=== PATIENT | male | born 1950 | race Caucasian/White ===

== ENCOUNTER 2017-01-19 17:33 | Emergency (ER) | payer OTHER ==
[~2017-01-19] VITALS: Ht 172.7 cm; Wt 78.0 kg
[2017-01-19 17:44] VITALS: BP 140/88; PULSE 103; RESP 16; TEMP 98; O2SAT 99
[2017-01-19] MEDS ORDERED: LOSA100T PO (17:59)
[2017-01-19 18:26] LABS: BLOOD, URINE NEG (NEG); GLUCOSE,URINE NEG (NEG); KETONE, URINE NEG (NEG); NITRITE,URINE NEG (NEG)
[2017-01-19 18:30] LABS: METHOD OF COLLECTION CATH
[2017-01-19 18:31] LABS: URINE COLOR YELLOW (YELLW/STRAW)
[2017-01-19 18:32] LABS: COMMENT (UR) CATH-CULT NOT IND; CULTURE IF INDICATED CATH CULTURE NOT IND; TRANSITIONAL EPI CELLS, URINE 0-5 /hpf
--- NOTE | 2017-01-19 18:32 | PD ---
HPI Chief Complaint: Complaint Time Seen by Provider: 18:02 Travel History International Travel<30 days: No Contact w/Intl Traveler<30days: No Traveled to known affect area: No History of Present Illness HPI 66-year-old male here for evaluation of lower abdominal cramping and inability to urinate. Patient reports history of elevated PSA and is scheduled for a prostate biopsy in 2 days. He has never had this issue before. He states when he tries to urinate he can only pass a small amount of urine. No hematuria. Patient also noted some diarrhea prior to arrival. No vomiting. PFSH Past Medical History Diminished Hearing: No Hypertension: Yes Influenza Vaccination: Yes Past Surgical History Other Surgery: Yes (finger) Social History Alcohol Use: Yes (wine) Tobacco Use: No Allergies-Medications (Allergen,Severity, Reaction): Coded Allergies: No Known Allergies (Unverified , 01/19/17) Reported Meds & Prescriptions Reported Meds & Active Scripts Active Reported Losartan (Losartan Potassium) 100 Mg Tab 100 Mg PO DAILY Review of Systems Except as stated in HPI: all other systems reviewed are Neg Physical Exam Narrative GENERAL: Well-developed, well-nourished, pacing around room because of abdominal pain/cramping. SKIN: Warm and dry. HEAD: Atraumatic. Normocephalic. EYES: Pupils equal and round. No scleral icterus. No injection or drainage. ENT: Mucous membranes pink and moist. CARDIOVASCULAR: Regular rate and rhythm. RESPIRATORY: No accessory muscle use. Clear to auscultation. Breath sounds equal bilaterally. GASTROINTESTINAL: Abdomen soft, nondistended. Moderate suprapubic tenderness with palpable distended bladder. Rest of abdomen is soft and nontender. NEUROLOGICAL: Awake and alert. No obvious cranial nerve deficits. Motor grossly within normal limits. Normal speech. PSYCHIATRIC: Appropriate mood and affect; insight and judgment normal. Data Data Last Documented VS Vital Signs Date Time Temp Pulse Resp B/P Pulse Ox O2 Delivery O2 Flow Rate FiO2 01/19/17 17:44 98.0 103 16 140/88 99 Orders Urinary Catheter Insert/Apply (01/19/17 18:08) Urinalysis - C+S If Indicated (01/19/17 18:08) Labs Laboratory Tests Test 01/19/17 18:20 Urine Collection Type CATH Urine Color YELLOW Urine Turbidity CLEAR Urine pH 6.0 Urine Specific [place] 1.009 Urine Protein NEG mg/dL Urine Glucose (UA) NEG mg/dL Urine Ketones NEG mg/dL Urine Occult Blood NEG Urine Nitrite NEG Urine Bilirubin NEG Urine Leukocyte Esterase NEG Urine Transitional Epithelial 0-5 /hpf Cells Urine Amorphous Sediment FEW Microscopic Urinalysis Comment CATH-CULT NOT IND Urine Collection Time 1820 [facility] Medical Decision Making Medical Screen Exam Complete: Yes Emergency Medical Condition: Yes Differential Diagnosis Urinary retention, prostatitis, UTI, diverticulitis Narrative Course Kenney catheter was placed with over 600 cc of clear urine output. The patient experienced immediate relief of symptoms. UA is within normal limits. The patient is resting comfortably and is feeling much better after Kenney was placed. His abdominal exam is benign. He has an appointment with his urologist in 2 days on Saturday. He will be discharged home with a leg bag and a prescription for Flomax. He was informed on when to return to the emergency department. He verbalizes understanding and agreement with plan. Diagnosis Primary Impression: Urinary retention Referrals: Urologist 2 days Additional Instructions: Follow-up with your urologist as scheduled on Saturday. Return to the emergency department for worsening symptoms or any other concerns. Scripts Tamsulosin (Flomax)0.4 Mg Cap0.4 Mg PO HS #14 CAP Ref 0 Prov:Siddhartha Carrillo MD 01/19/17 Disposition: 01 DISCHARGE HOME Condition: Stable Siddhartha Carrillo MD Jan 19, 2017 18:32
[2017-01-19] MEDS ORDERED: TAMS5CAP PO (18:35)
[2017-01-19] MEDS ORDERED: TAMSULOSIN HCL 0.4 MG CAP PO ONE (18:45)
[2017-01-19 19:06] VITALS: PULSE 82; O2SAT 96
== END 2017-01-19 19:19 | disposition home or self-care (01) ==
LOC: PHED 17:33
DX: R33.9 Retention of urine, unspecified (principal)
CPT/HCPCS: 51702; 81001

== ENCOUNTER 2017-01-23 05:53 | Inpatient (IN) | payer OTHER, MEDICARE ==
[2017-01-23] VITALS (15 sets, daily range): BP systolic 95–140; BP diastolic 53–78; PULSE 87–107; RESP 16–20; TEMP 99.1–103.2; O2SAT 94–98
[~2017-01-23] VITALS: Ht 170.2 cm; Wt 79.9 kg
[~2017-01-23 05:53] MED LIST: LOSA100T PO; TAMS5CAP PO
--- NOTE | 2017-01-23 06:18 | PD ---
HPI Chief Complaint: fever Time Seen by Provider: 06:06 Travel History International Travel<30 days: No Contact w/Intl Traveler<30days: No Traveled to known affect area: No History of Present Illness HPI The patient is a 66-year-old male that had a Kenney catheter put in because of inability to urinate here in the emergency department on Saturday p.m. He had a prostate biopsy Saturday, 2 days ago. Yesterday he developed a fever. The fever is about 103. He has not had any diarrhea or cough or shortness of breath but he has been vomiting at least 3 times. He denies vomiting any blood. Dr. Laurent is his urologist. [facility] Past Medical History Diminished Hearing: No Hypertension: Yes Past Surgical History Other Surgery: Yes (finger) Social History Alcohol Use: Yes (wine) Tobacco Use: No Allergies-Medications (Allergen,Severity, Reaction): Coded Allergies: No Known Allergies (Unverified , 01/23/17) Reported Meds & Prescriptions Reported Meds & Active Scripts Active Flomax (Tamsulosin HCl) 0.4 Mg Cap 0.4 Mg PO HS Reported Levofloxacin 500 Mg Tab 500 Mg PO DAILY Lortab (Hydrocodone-Acetaminophen) 10-325 Mg Tab 1 Tab PO Q4H PRN Losartan (Losartan Potassium) 100 Mg Tab 100 Mg PO DAILY Review of Systems Except as stated in HPI: all other systems reviewed are Neg Physical Exam Narrative GENERAL: The patient appears slightly dehydrated, alert, oriented 3 in no apparent distress. His vital signs show heart rate of 107 with a temperature by 103 but otherwise normal. SKIN: Warm and dry. No skin rash is present. HEAD: Atraumatic. Normocephalic. EYES: Pupils equal and round. No scleral icterus. No injection or drainage. ENT: No nasal bleeding or discharge. Mucous membranes pink and moist. NECK: Trachea midline. No JVD. CARDIOVASCULAR: Regular rate and rhythm. No murmur appreciated. RESPIRATORY: No accessory muscle use. Clear to auscultation. Breath sounds equal bilaterally. GASTROINTESTINAL: Abdomen soft, non-tender, nondistended. Hepatic and splenic margins not palpable. No guarding or rebound is present. MUSCULOSKELETAL: No obvious deformities. No clubbing. No cyanosis. No edema. NEUROLOGICAL: Awake and alert. No obvious cranial nerve deficits. Motor grossly within normal limits. Normal speech. PSYCHIATRIC: Appropriate mood and affect; insight and judgment normal. RECTAL EXAM: No masses or tenderness, stool is brown. The prostate is nontender and there are no perirectal abscess is noted. Data Data Last Documented VS Vital Signs Date Time Temp Pulse Resp B/P Pulse Ox O2 Delivery O2 Flow Rate FiO2 01/23/17 06:56 103.2 106 16 125/63 96 Room Air Orders Complete Blood Count With Diff (01/23/17 06:09) Comprehensive Metabolic Panel (01/23/17 06:09) Lactic Acid Sepsis Protocol (01/23/17 06:09) Urinalysis - C+S If Indicated (01/23/17 06:09) Influenzae A/B Antigen (01/23/17 06:09) Blood Culture (01/23/17 06:09) Chest, Pa & Lat (01/23/17 06:09) Ecg Monitoring (01/23/17 06:09) Iv Access Insert/Monitor (01/23/17 06:09) Oximetry (01/23/17 06:09) Oxygen Administration (01/23/17 06:09) Ondansetron Inj (Zofran Inj) (01/23/17 06:30) Sodium Chlor 0.9% 1000 Ml Inj (Ns 1000 M (01/23/17 06:30) Acetaminophen (Tylenol) (01/23/17 07:00) Labs Laboratory Tests Test 01/23/17 06:22 White Blood Count 7.1 TH/MM3 Red Blood Count 4.59 MIL/MM3 Hemoglobin 13.8 GM/DL Hematocrit 40.2 % Mean Corpuscular Volume 87.6 FL Mean Corpuscular Hemoglobin 30.0 PG Mean Corpuscular Hemoglobin 34.3 % Concent Red Cell Distribution Width 11.7 % Platelet Count 117 TH/MM3 Mean Platelet Volume 9.6 FL Neutrophils (%) (Auto) 89.7 % Lymphocytes (%) (Auto) 4.5 % Monocytes (%) (Auto) 4.9 % Eosinophils (%) (Auto) 0.3 % Basophils (%) (Auto) 0.6 % Neutrophils # (Auto) 6.5 TH/MM3 Lymphocytes # (Auto) 0.3 TH/MM3 Monocytes # (Auto) 0.3 TH/MM3 Eosinophils # (Auto) 0.0 TH/MM3 Basophils # (Auto) 0.0 TH/MM3 CBC Comment AUTO DIFF MDM Medical Decision Making Medical Screen Exam Complete: Yes Emergency Medical Condition: Yes Medical Record Reviewed: Yes Differential Diagnosis Prostatitis, pyelonephritis, cystitis, infected stone, sepsis, pneumonia Narrative Course It is now [address] Gibbs is taking over the patient. Carson San MD Jan 23, 2017 06:17
[2017-01-23] MEDS ORDERED: ONDANSETRON HCL 4 MG/2 ML VIAL IV ONE (06:30)
[2017-01-23] MEDS: SODIUM CHLOR 0.9% 1000 ML INJ 1,000 ML IV SCH ×4 (06:38→21:46)
[2017-01-23 06:44] LABS: AUTOMATED NEUTROPHIL # 6.5 TH/MM3 (1.8-7.7); BASOPHIL % 0.6 % (0.0-2.0); EOSINOPHIL % 0.3 % (0.0-4.0); HEMATOCRIT 40.2 % (39.0-51.0); HEMO FLAGS AUTO DIFF; LYMPH % 4.5 % (9.0-44.0); LYMPHOCYTE # 0.3 TH/MM3 (1.0-4.8); MEAN CELL VOLUME 87.6 FL (80.0-100.0); MEAN CORPUSCULAR HGB CONC 34.3 % (32.0-36.0); MONO % 4.9 % (0.0-8.0); NEUT % 89.7 % (16.0-70.0); PLATELET COUNT 117 TH/MM3 (150-450); RED BLOOD COUNT 4.59 MIL/MM3 (4.50-5.90); RED CELL DISTRIBUTION WIDTH 11.7 % (11.6-17.2); WHITE BLOOD COUNT 7.1 TH/MM3 (4.0-11.0)
[2017-01-23] MEDS ORDERED: LEVO500T3 PO (06:55)
[2017-01-23] MEDS ORDERED: HYDR-3535 PO (06:55)
[2017-01-23 07:00] LABS: BLOOD, URINE LARGE (NEG); GLUCOSE,URINE NEG (NEG); KETONE, URINE NEG (NEG); NITRITE,URINE NEG (NEG)
[2017-01-23] MEDS ORDERED: ACETAMINOPHEN 325 MG TAB PO ONE (07:00)
[2017-01-23 07:01] LABS: CHLORIDE 100 MEQ/L (98-107); POTASSIUM 3.7 MEQ/L (3.5-5.1); SODIUM (NA) 136 MEQ/L (136-145)
[2017-01-23 07:04] LABS: METHOD OF COLLECTION CATH; URINE COLOR YELLOW (YELLW/STRAW)
[2017-01-23 07:04] LABS: ANION GAP 10 MEQ/L (5-15); BICARBONATE 25.8 MEQ/L (21.0-32.0)
[2017-01-23 07:05] LABS: BLOOD UREA NITROGEN 14 MG/DL (7-18)
[2017-01-23 07:06] LABS: CULTURE IF INDICATED CATH CULTURE NOT IND
[2017-01-23 07:07] LABS: COMMENT (UR) CATH-CULT NOT IND
[2017-01-23 07:07] LABS: ALT (GPT) 87 U/L (12-78); AST (GOT) 74 U/L (15-37)
[2017-01-23 07:08] LABS: GLOMERULAR FILTRATION RATE 67 ML/MIN (>89)
[2017-01-23 07:10] LABS: ALKALINE PHOSPHATASE 68 U/L (45-117)
--- NOTE | 2017-01-23 07:11 | RADHPO ---
EXAM DATE/TIME: 01/23/2017 06:31 [facility] COMPARISON: No previous studies available for comparison. INDICATIONS : Fever. MEDICAL HISTORY : None. SURGICAL HISTORY : None. ENCOUNTER: Initial ACUITY: 1 day PAIN SCORE: 0/10 LOCATION: Bilateral chest FINDINGS: PA and lateral views of the chest demonstrate the lungs to be symmetrically aerated without evidence of mass, infiltrate or effusion. Minimal fibrotic scarring and/or discoid atelectasis is noted withi n the left lung base. The cardiomediastinal contours are unremarkable. Osseous structures are intact . CONCLUSION: No acute focal pulmonary infiltrate. Minimal fibrotic scarring and/or discoid atelect asis within the left lung base. Rehan Greenfield MD on January 23, 2017 at 7:07 Board Certified Radiologist. This report was verified electronically.
[2017-01-23 07:15] LABS: SCAN/DIFF AUTO DIFF CONFIRMED
[2017-01-23] MEDS ORDERED: SODIUM CHLOR 0.9% 1000 ML INJ 1,000 ML IV ONE (08:15)
--- NOTE | 2017-01-23 08:21 | PD ---
Physical Exam Narrative Received sign out from previous team to follow up labs. 66yo M presents to the ED with c/o fever, chills, NBNB vomit since last night. States he had a prostate biopsy 2 days ago. Had a morse placed 3 days ago for urinary retention and was able to follow up with urologist the next day. Pt had morse removed and was able to urinate normally. Denies any chest pain, sob , abdominal pain, cough. Pt is febrile at 103.2F here and given acetaminophen. HR 106. Labs reviewed, no leukocytosis. Lactic acid 1.5. CXR negative. UA showed large blood. No leukocyte. Attempted to page pt's urologist 3 times but unable to reach him. Pt's vital signs concerning for bacteremia from prostate biopsy. Pt was empirically given vancomycin and zosyn. Discussed with [facility] hospitalist and admitted for sepsis of unknown source. Data Data Last Documented VS Vital Signs Date Time Temp Pulse Resp B/P Pulse Ox O2 Delivery O2 Flow Rate FiO2 01/23/17 10:26 Room Air 01/23/17 09:35 94 17 104/56 96 01/23/17 08:53 99.9 Orders Complete Blood Count With Diff (01/23/17 06:09) Comprehensive Metabolic Panel (01/23/17 06:09) Lactic Acid Sepsis Protocol (01/23/17 06:09) Urinalysis - C+S If Indicated (01/23/17 06:09) Influenzae A/B Antigen (01/23/17 06:09) Blood Culture (01/23/17 06:09) Chest, Pa & Lat (01/23/17 06:09) Ecg Monitoring (01/23/17 06:09) Iv Access Insert/Monitor (01/23/17 06:09) Oximetry (01/23/17 06:09) Oxygen Administration (01/23/17 06:09) Ondansetron Inj (Zofran Inj) (01/23/17 06:30) Sodium Chlor 0.9% 1000 Ml Inj (Ns 1000 M (01/23/17 06:30) Acetaminophen (Tylenol) (01/23/17 07:00) Sodium Chlor 0.9% 1000 Ml Inj (Ns 1000 M (01/23/17 08:15) Vancomycin Inj (Vancomycin Inj) (01/23/17 09:00) Piperacil-Tazo 3.375 Gm Premix (Zosyn 3. (01/23/17 09:00) Admit Order (Ed Use Only) (01/23/17 10:32) Acetamin-Hydrocod 325-5 Mg ([place] 5-325 (01/23/17 10:45) Labs Laboratory Tests Test 01/23/17 01/23/17 06:22 06:34 White Blood Count 7.1 TH/MM3 Red Blood Count 4.59 MIL/MM3 Hemoglobin 13.8 GM/DL Hematocrit 40.2 % Mean Corpuscular Volume 87.6 FL Mean Corpuscular Hemoglobin 30.0 PG Mean Corpuscular Hemoglobin 34.3 % Concent Red Cell Distribution Width 11.7 % Platelet Count 117 TH/MM3 Mean Platelet Volume 9.6 FL Neutrophils (%) (Auto) 89.7 % Lymphocytes (%) (Auto) 4.5 % Monocytes (%) (Auto) 4.9 % Eosinophils (%) (Auto) 0.3 % Basophils (%) (Auto) 0.6 % Neutrophils # (Auto) 6.5 TH/MM3 Lymphocytes # (Auto) 0.3 TH/MM3 Monocytes # (Auto) 0.3 TH/MM3 Eosinophils # (Auto) 0.0 TH/MM3 Basophils # (Auto) 0.0 TH/MM3 CBC Comment AUTO DIFF Differential Comment AUTO DIFF CONFIRMED Sodium Level 136 MEQ/L Potassium Level 3.7 MEQ/L Chloride Level 100 MEQ/L Carbon Dioxide Level 25.8 MEQ/L Anion Gap 10 MEQ/L Blood Urea Nitrogen 14 MG/DL Creatinine 1.10 MG/DL Estimat Glomerular Filtration 67 ML/MIN Rate Random Glucose 124 MG/DL Lactic Acid Level 1.5 mmol/L Calcium Level 8.4 MG/DL Total Bilirubin 1.0 MG/DL Aspartate Amino Transf 74 U/L (AST/SGOT) Alanine Aminotransferase 87 U/L (ALT/SGPT) Alkaline Phosphatase 68 U/L Total Protein 7.0 GM/DL Albumin 3.2 GM/DL Urine Collection Type CATH Urine Color YELLOW Urine Turbidity CLEAR Urine pH 7.0 Urine Specific [place] 1.018 Urine Protein TRACE mg/dL Urine Glucose (UA) NEG mg/dL Urine Ketones NEG mg/dL Urine Occult Blood LARGE Urine Nitrite NEG Urine Bilirubin NEG Urine Leukocyte Esterase NEG Urine RBC 25-49 /hpf Urine WBC 3-5 /hpf Urine Amorphous Sediment FEW Microscopic Urinalysis Comment CATH-CULT NOT IND Urine Collection Time 0634 MDM Supervised Visit with CASSIUS: No Diagnosis Primary Impression: Sepsis Qualified Code: A41.9 - Sepsis, due to unspecified organism Admitting Information Admitting Physician Requests: Pati Beckham DO Jan 23, 2017 08:21
[2017-01-23] MEDS ORDERED: VANCOMYCIN INJ 1,000 MG in SODIUM CHLOR 0.9% 250 ML INJ 250 ML IV ONE (09:00)
[2017-01-23] MEDS ORDERED: PIPERACIL-TAZO 3.375 GM PREMIX 50 ML IV ONE (09:00)
[2017-01-23] MEDS ORDERED: SODIUM CHLORIDE 0.9% FLUSH 5 ML FLUSH FLUSH PRN (10:45)
[2017-01-23] MEDS ORDERED: Vancomycin Consult Pharmacy 1 EA OTHER SCH (10:45)
[2017-01-23] MEDS ORDERED: ACETAMINOPHEN/HYDROcodone 325 MG/5 MG TAB PO ONE (10:45)
[2017-01-23] MEDS ORDERED: NALOXONE HCL 0.4 MG/ML AMP IV PRN (10:45)
[2017-01-23] MEDS ORDERED: ONDANSETRON HCL 4 MG/2 ML VIAL IVP PRN (10:45)
[2017-01-23] MEDS: HEPARIN SODIUM - SQ 10,000 UNITS/ML VIAL SQ SCH ×2 (10:54→21:51)
[2017-01-23] MEDS ORDERED: VANCOMYCIN INJ 1,000 MG in SODIUM CHLOR 0.9% 250 ML INJ 250 ML IV SCH (11:00)
[2017-01-23] MEDS: PIPERACIL-TAZO 3.375 GM PREMIX 50 ML IV SCH ×2 (15:41→21:45)
[2017-01-23] MEDS: ACETAMINOPHEN 325 MG TAB PO PRN (16:13)
[2017-01-23] MEDS ORDERED: PROMETHAZINE INJ 25 MG/ML VIAL IM PRN (17:45)
[2017-01-23] MEDS ORDERED: ACETAMINOPHEN/HYDROcodone 325 MG/10 MG TAB PO PRN (21:00)
[2017-01-23] MEDS: SODIUM CHLORIDE 0.9% FLUSH 5 ML FLUSH FLUSH SCH (21:45)
[2017-01-23] MEDS: TAMSULOSIN HCL 0.4 MG CAP PO SCH (21:46)
[2017-01-23] MEDS: ZOLPIDEM TARTRATE 5 MG TAB PO SCH (21:52)
[2017-01-23] MEDS: LOSARTAN 50 MG TAB PO SCH (21:52)
--- NOTE | 2017-01-23 22:02 | MH ---
cc: BRIGHT BRITO MD DATE OF ADMISSION 01/23/2017 CHIEF COMPLAINT Fever. HISTORY OF PRESENT ILLNESS This is a 66-year-old male with past medical and surgical history significant for hypertension. The patient came to the hospital, had a Kenney catheter put in because of inability to urinate here in the emergency department on Saturday p.m. he had a prostate biopsy Saturday and today he developed a fever. The fever was 103. He has not had any diarrhea, cough or shortness of breath, but he had been vomited at least three times yesterday. He denies any blood in the vomitus. His urologist is Dr. Laurent. The patient denies any other complaint. He said he does not feel any fever or any complaint at the time of examination. PAST MEDICAL AND SURGICAL HISTORY As dictated above. SOCIAL HISTORY He drinks wine on a daily basis. Denies any smoking. Denies any drug abuse. Lives at home. He is retired. FAMILY HISTORY Significant for nothing. ALLERGIES NO KNOWN DRUG ALLERGIES. MEDICATIONS Include: 1. Flomax 0.4 milligrams p.o. daily. 2. Levaquin 500 mg p.o. daily. 3. Lortab 10 / 325 p.o. q.4h p.r.n. pain. 4. Losartan 100 mg p.o. daily. REVIEW OF SYSTEMS All review of systems are negative. PHYSICAL EXAMINATION GENERAL: This is a 66-year-old male sitting on the bed not in acute distress. VITAL SIGNS: Temperature 101.2, heart rate 99, respirations 20, blood pressure 130/78, O2 saturation 96% room air. HEENT: Normocephalic, atraumatic. EOMI. PERRL. Oral mucosa moist. NECK: Supple. No visible thyromegaly or neck mass. Trachea central. CARDIOVASCULAR: Regular rate and rhythm. LUNGS: Respirations clear to auscultation bilaterally. ABDOMEN: Soft, nontender. Bowel sounds audible. EXTREMITIES: No edema. No cyanosis or clubbing. Full range of motion of all extremities. NEUROLOGICAL: Awake, alert, oriented x4. No focal deficits. SKIN: Warm and dry. PSYCHIATRIC: The patient is cooperative. Mood and affect are normal. LABORATORY DATA Include CBC totally unremarkable except for platelet count 117 low, neutrophils 89.7 high, lympho 4.5 low. BMP totally unremarkable except for GFR 67 low, glucose 124 high, lactic acid level 1.5, calcium 8.4, AST 74, ALT 78. Troponin I is 0.02 and 0.06. Albumin 3.2. Urine exam showed large occult blood and rbc's 25-49, 3-5 wbc's. Influenza A and B negative. Blood cultures x2 done negative so far. IMAGING Chest x-ray was done shows no acute focal pulmonary infiltrates, minimal fibrotic scarring or discoid atelectasis within the left lung base. ASSESSMENT/PLAN 1. This is a 66-year-old male who came to the ER diagnosed with fever. Etiology not known. The patient had a prostate biopsy. The patient is on vancomycin and Zosyn. I will consult infectious disease for further recommendation. 2. High PSA status post prostate biopsy. Had hematuria because of that. 3. History of hypertension. Continue home medication. We will monitor blood pressure. 4. High troponin. We will repeat troponin again. 5. Low platelet count. We will monitor. 6. DVT prophylaxis. SCDs. 7. GI prophylaxis. Protonix 40 milligrams p.o. daily. 8. We are going to manage the patient on a daily basis and make recommendations on a daily basis. Bright Brito MD EA/CECIL /8:55 PM /9:40 PM
[2017-01-23] MEDS: VANCOMYCIN INJ 1,400 MG in SODIUM CHLORID 0.9% 500 ML INJ 500 ML IV SCH (23:14)
[2017-01-24] VITALS (7 sets, daily range): BP systolic 98–133; BP diastolic 59–79; PULSE 73–104; RESP 20–22; TEMP 98.7–101.2; O2SAT 93–97
[2017-01-24] MEDS: ACETAMINOPHEN 325 MG TAB PO PRN ×2 (01:10→15:02)
[2017-01-24] MEDS: SODIUM CHLOR 0.9% 1000 ML INJ 1,000 ML IV SCH ×2 (03:57→17:35)
[2017-01-24] MEDS: PIPERACIL-TAZO 3.375 GM PREMIX 50 ML IV SCH ×4 (03:58→21:54)
[2017-01-24 06:10] LABS: AUTOMATED NEUTROPHIL # 3.9 TH/MM3 (1.8-7.7); BASOPHIL % 0.7 % (0.0-2.0); EOSINOPHIL % 0.1 % (0.0-4.0); HEMATOCRIT 38.6 % (39.0-51.0); LYMPH % 15.2 % (9.0-44.0); LYMPHOCYTE # 0.7 TH/MM3 (1.0-4.8); MEAN CELL VOLUME 88.7 FL (80.0-100.0); MEAN CORPUSCULAR HEMOGLOBIN 30.8 PG (27.0-34.0); MEAN CORPUSCULAR HGB CONC 34.7 % (32.0-36.0); MONO % 4.7 % (0.0-8.0); NEUT % 79.3 % (16.0-70.0); PLATELET COUNT 100 TH/MM3 (150-450); RED BLOOD COUNT 4.35 MIL/MM3 (4.50-5.90); RED CELL DISTRIBUTION WIDTH 11.9 % (11.6-17.2); WHITE BLOOD COUNT 4.8 TH/MM3 (4.0-11.0)
[2017-01-24 06:12] LABS: HEMO FLAGS AUTO DIFF
[2017-01-24 06:18] LABS: POTASSIUM 3.4 MEQ/L (3.5-5.1)
[2017-01-24 06:23] LABS: BICARBONATE 25.1 MEQ/L (21.0-32.0)
[2017-01-24 06:41] LABS: PLATELET ESTIMATE SMEAR LOW (NORMAL); PLATELET MORPHOLOGY NORMAL (NORMAL); SCAN/DIFF AUTO DIFF CONFIRMED
--- NOTE | 2017-01-24 08:12 | HHI.PR ---
Subjective History of Present Illness Patient feeling better have low potassium d/w RN and at bed side no acute issue Review of Systems Constitutional Constitutional: Fatigue, Weakness Vitals/Results Intake & Output 01/23/17 01/23/17 01/24/17 15:00 23:00 07:00 Intake Total 3000 ml 740 ml 1250 ml Output Total 900 ml 500 ml 100 ml Balance 2100 ml 240 ml 1150 ml Intake Oral 240 ml IV Total 3000 ml 500 ml 1250 ml Output Urine Total 900 ml 500 ml 100 ml # Voids 4 # Bowel Movements 0 Vital Signs Vital Signs Date Time Temp Pulse Resp B/P Pulse Ox O2 Delivery O2 Flow Rate FiO2 01/24/17 00:00 101.1 104 22 121/72 95 01/23/17 21:00 87 01/23/17 20:00 94 21 01/23/17 20:00 99.9 88 18 140/78 94 01/23/17 18:10 101.2 01/23/17 17:38 98 21 01/23/17 17:22 18 01/23/17 16:00 103.1 99 20 130/78 96 01/23/17 13:14 18 01/23/17 11:30 101.0 102 20 128/71 96 01/23/17 10:49 99.1 103 17 104/67 98 Room Air 01/23/17 10:26 Room Air 01/23/17 09:35 94 17 104/56 96 Room Air 01/23/17 08:53 99.9 104 17 95/53 96 Room Air CBC/BMP: 01/24/17 0553 01/24/17 0553 Lab Results Laboratory Tests Test 01/23/17 01/23/17 01/24/17 11:00 16:15 05:53 Troponin I 0.02 NG/ML 0.06 NG/ML White Blood Count 4.8 TH/MM3 Red Blood Count 4.35 MIL/MM3 Hemoglobin 13.4 GM/DL Hematocrit 38.6 % Mean Corpuscular Volume 88.7 FL Mean Corpuscular Hemoglobin 30.8 PG Mean Corpuscular Hemoglobin 34.7 % Concent Red Cell Distribution Width 11.9 % Platelet Count 100 TH/MM3 Mean Platelet Volume 9.6 FL Neutrophils (%) (Auto) 79.3 % Lymphocytes (%) (Auto) 15.2 % Monocytes (%) (Auto) 4.7 % Eosinophils (%) (Auto) 0.1 % Basophils (%) (Auto) 0.7 % Neutrophils # (Auto) 3.9 TH/MM3 Lymphocytes # (Auto) 0.7 TH/MM3 Monocytes # (Auto) 0.2 TH/MM3 Eosinophils # (Auto) 0.0 TH/MM3 Basophils # (Auto) 0.0 TH/MM3 CBC Comment AUTO DIFF Differential Comment AUTO DIFF CONFIRMED Platelet Estimate LOW Platelet Morphology Comment NORMAL Red Cell Morphology Comment NORMAL Sodium Level 141 MEQ/L Potassium Level 3.4 MEQ/L Chloride Level 106 MEQ/L Carbon Dioxide Level 25.1 MEQ/L Anion Gap 10 MEQ/L Blood Urea Nitrogen 11 MG/DL Creatinine 1.20 MG/DL Estimat Glomerular Filtration 60 ML/MIN Rate Random Glucose 98 MG/DL Calcium Level 7.7 MG/DL Physical Exam General General Appearance: Well Nourished, No Acute Distress, Comfortable Eyes Eye Exam: Pupils Equal, Pupils Reactive, Sclera White, Extraocular Movement Intact Throat Throat Exam: Oral Mucosa Manuel Garcia Ii & Moist Neck Neck Exam: Neck Supple, Trachea Midline Pulmonary Resp Exam: Clear Bilaterally, Breath Sounds Equal, No Distress Cardiology CV Exam: Regular, Normal Sinus Rhythm Gastrointestinal/Abdomen GI Exam: Soft, Non-Tender, Bowel Sounds Present Musculoskeletal MS Exam: Joints Intact, Normal Tone Integumentary Skin Exam: Clear, Warm, Dry, Intact, Normal Turgor Neurologic Neuro Exam: Alert, Awake, Oriented, Speech Clear, Moving All Extremities, No Focal Deficits VTE Prophylaxis VTE Prophylaxis Meds: Heparin PUD Prophylasis PUD Prophylaxis: Protonix Assessment/Plan Assessment/Plan ASSESSMENT/PLAN 1. This is a 66-year-old male who came to the ER diagnosed with fever. Etiology not known. The patient had a prostate biopsy. The patient is on vancomycin and Zosyn. consulted infectious disease for further recommendation. blood culture negative so far. 2. High PSA status post prostate biopsy. Had hematuria because of that. 3. History of hypertension. Continue home medication. We will monitor blood pressure. 4. High troponin. We will repeat troponin again. 5. Low platelet count. We will monitor. 6. DVT prophylaxis. SCDs. 7. GI prophylaxis. Protonix 40 milligrams p.o. daily. 8. We are going to manage the patient on a daily basis and make recommendations on a daily basis. Discussed Condition with: Patient Bright Bundy MD Jan 24, 2017 08:12
[2017-01-24] MEDS: SODIUM CHLORIDE 0.9% FLUSH 5 ML FLUSH FLUSH SCH ×2 (09:00→20:45)
--- NOTE | 2017-01-24 09:19 | RADHPO ---
EXAM DATE/TIME: 01/24/2017 08:55 [facility] COMPARISON: No previous studies available for comparison. INDICATIONS : Fever. RADIATION DOSE: 12.85 CTDIvol (mGy) MEDICAL HISTORY : Hypertension. SURGICAL HISTORY : None. ENCOUNTER: Initial ACUITY: 3 days PAIN SCALE: 0/10 LOCATION: chest TECHNIQUE: Volumetric scanning of the chest was performed. Using automated exposure control and adjustment of t he mA and/or kV according to patient size, radiation dose was kept as low as reasonably achievable to obtain optimal diagnostic quality images. FINDINGS: CT chest was performed without contrast. There is a small area of consolidation in the right lower l obe. Somewhat wedge-shaped worn more in a pattern of atelectasis than a pneumonia. Upper lungs are clear. There are a few tiny pulmonary nodules including a 2 mm pulmonary nodule in the right upper lobe laterally. No large infiltrate or mass identified. There are a number of hypodensities scattered throughout the liver. They are all a centimeter or subc entimeter in size but somewhat prominent including one nodule adjacent to the falciform ligament measuring 1.8 x 1 .4 cm. It actually distorts the contour of the liver anteriorly. There are a number of other tiny hypodense le sions. Either a hepatic MRI or contrast enhanced CT scan could be performed. There are trace bilateral pleural effus ions right greater than left. The visualized upper abdomen is unremarkable. CONCLUSION: Some atelectasis right lower lobe with tiny bilateral pleural effusions. No significant infiltrates or masses identified in the lungs. There is no mediastinal adenopathy. A number of hypodensities scattered throughout the liver including one adjacent to the falciform liga ment which anteriorly displaces the liver capsule. Slightly unusual for a benign lesion although hem angioma is within the differential. Either hepatic MRI or contrast enhanced CT scan is recommende d, certainly could be on an outpatient basis. Donta Nicole MD on January 24, 2017 at 9:10 Board Certified Radiologist. This report was verified electronically.
[2017-01-24] MEDS: LOSARTAN 50 MG TAB PO SCH (09:23)
[2017-01-24] MEDS: HEPARIN SODIUM - SQ 10,000 UNITS/ML VIAL SQ SCH ×2 (09:26→20:46)
--- NOTE | 2017-01-24 16:36 | HHI.IDPN ---
Subjective Subjective Allergies: Coded Allergies: No Known Allergies (Unverified , 01/23/17) Objective . Vital Signs Date Time Temp Pulse Resp B/P Pulse Ox O2 Delivery O2 Flow Rate FiO2 01/24/17 16:00 99.6 79 20 122/75 97 01/24/17 12:00 101.2 88 20 98/59 95 01/24/17 11:41 93 21 01/24/17 08:00 98.7 93 20 133/79 94 01/24/17 00:00 101.1 104 22 121/72 95 01/23/17 21:00 87 01/23/17 20:00 94 21 01/23/17 20:00 99.9 88 18 140/78 94 01/23/17 18:10 101.2 01/23/17 17:38 98 21 01/23/17 17:22 18 01/23/17 01/23/17 01/24/17 15:00 23:00 07:00 Intake Total 3000 ml 740 ml 1250 ml Output Total 900 ml 500 ml 100 ml Balance 2100 ml 240 ml 1150 ml Intake Oral 240 ml IV Total 3000 ml 500 ml 1250 ml Output Urine Total 900 ml 500 ml 100 ml # Voids 4 # Bowel Movements 0 . Laboratory Tests Test 01/23/17 01/24/17 06:22 05:53 White Blood Count 7.1 TH/MM3 4.8 TH/MM3 Red Blood Count 4.59 MIL/MM3 4.35 MIL/MM3 Hemoglobin 13.8 GM/DL 13.4 GM/DL Hematocrit 40.2 % 38.6 % Mean Corpuscular Volume 87.6 FL 88.7 FL Mean Corpuscular Hemoglobin 30.0 PG 30.8 PG Mean Corpuscular Hemoglobin 34.3 % 34.7 % Concent Red Cell Distribution Width 11.7 % 11.9 % Platelet Count 117 TH/MM3 100 TH/MM3 Mean Platelet Volume 9.6 FL 9.6 FL Neutrophils (%) (Auto) 89.7 % 79.3 % Lymphocytes (%) (Auto) 4.5 % 15.2 % Monocytes (%) (Auto) 4.9 % 4.7 % Eosinophils (%) (Auto) 0.3 % 0.1 % Basophils (%) (Auto) 0.6 % 0.7 % Neutrophils # (Auto) 6.5 TH/MM3 3.9 TH/MM3 Lymphocytes # (Auto) 0.3 TH/MM3 0.7 TH/MM3 Monocytes # (Auto) 0.3 TH/MM3 0.2 TH/MM3 Eosinophils # (Auto) 0.0 TH/MM3 0.0 TH/MM3 Basophils # (Auto) 0.0 TH/MM3 0.0 TH/MM3 CBC Comment AUTO DIFF AUTO DIFF Differential Comment AUTO DIFF AUTO DIFF CONFIRMED CONFIRMED Platelet Estimate LOW Platelet Morphology Comment NORMAL Red Cell Morphology Comment NORMAL Laboratory Tests Test 01/23/17 01/23/17 01/23/17 01/24/17 06:22 11:00 16:15 05:53 Sodium Level 136 MEQ/L 141 MEQ/L Potassium Level 3.7 MEQ/L 3.4 MEQ/L Chloride Level 100 MEQ/L 106 MEQ/L Carbon Dioxide Level 25.8 MEQ/L 25.1 MEQ/L Anion Gap 10 MEQ/L 10 MEQ/L Blood Urea Nitrogen 14 MG/DL 11 MG/DL Creatinine 1.10 MG/DL 1.20 MG/DL Estimat Glomerular Filtration 67 ML/MIN 60 ML/MIN Rate Random Glucose 124 MG/DL 98 MG/DL Lactic Acid Level 1.5 mmol/L Calcium Level 8.4 MG/DL 7.7 MG/DL Total Bilirubin 1.0 MG/DL Aspartate Amino Transf 74 U/L (AST/SGOT) Alanine Aminotransferase 87 U/L (ALT/SGPT) Alkaline Phosphatase 68 U/L Total Protein 7.0 GM/DL Albumin 3.2 GM/DL Troponin I 0.02 NG/ML 0.06 NG/ML Microbiology Date/Time Procedure Status Source Growth 01/23/17 06:22 Aerobic Blood Culture - Preliminary Resulted Blood Peripheral NO GROWTH IN 1 DAY 01/23/17 06:22 Anaerobic Blood Culture - Preliminary Resulted Blood Peripheral NO GROWTH IN 1 DAY 01/23/17 06:22 Influenza Types A,B Antigen (SHERMAN) - Final Complete Nasal Aspirate NEGATIVE FOR FLU A AND B ANTIGEN.... 01/23/17 06:28 Aerobic Blood Culture - Preliminary Resulted Blood Peripheral NO GROWTH IN 1 DAY 01/23/17 06:28 Anaerobic Blood Culture - Preliminary Resulted Blood Peripheral NO GROWTH IN 1 DAY Doretha Kwon Jan 24, 2017 16:36
--- NOTE | 2017-01-24 17:21 | PD.CONS ---
History of Present Illness Service ID CONSULT DR HECTOR Consult Requested By DR BRITO Reason for Consult FEVER Primary Care Physician Jason Wesotn MD Diagnoses: (1) Sepsis (2) Urinary retention History of Present Illness 66 Y/O MALE ADM WITH FEVER AND URINARY RETENTION. HE IS NOTED TO HAVE A PROSTATE BIOPSY LAST WEEK. HE HAD A MCCLURE CATH PLACED SATURDAY DUE TO URINARY RETENTION. HE HAD HAD THE CATH REMOVED saturday. HE STARTED ON LEVAQUIN X 2 DAYS AND STARTED TO HAVE FEVERS SATURDAY. HE HAD + FEVER AND CHILLS. HE IS HERE NOW WITH FUO. HE HAD CT ABD + ? LIVER LESION BUT OTHER MOTA BENIGN. ID CONSULTED. HE DENIES SOB / COUGH / NVD. (Doretha Kwon) History of Present Illness Fever and chils after a prostate biopsy, Was told some years ago that he had some liver lesions. (Jesenia Hector MD) Review of Systems Constitutional: COMPLAINS OF: Fever, Chills, DENIES: Weight loss Ears, nose, mouth, throat: DENIES: Nasal discharge Respiratory: DENIES: Cough Cardiovascular: DENIES: Palpitations Gastrointestinal: DENIES: Black stools Psychiatric: DENIES: Agitation (Doretha Kwon) Past Family Social History Allergies: Coded Allergies: No Known Allergies (Unverified , 01/23/17) Past Medical History NONE HAD ELEVATED PSA RECENTLY Past Surgical History FINGER Family History NA Social History OCC WINE (Doretha Kwon) Physical Exam Vital Signs Vital Signs Date Time Temp Pulse Resp B/P Pulse Ox O2 Delivery O2 Flow Rate FiO2 01/24/17 16:00 99.6 79 20 122/75 97 01/24/17 12:00 101.2 88 20 98/59 95 01/24/17 11:41 93 21 01/24/17 08:00 98.7 93 20 133/79 94 01/24/17 00:00 101.1 104 22 121/72 95 01/23/17 21:00 87 01/23/17 20:00 94 21 01/23/17 20:00 99.9 88 18 140/78 94 01/23/17 18:10 101.2 01/23/17 17:38 98 21 01/23/17 17:22 18 Physical Exam GENERAL: This is a well-nourished, well-developed patient, in no apparent distress. SKIN: No rashes, ecchymoses or lesions. Cool and dry. HEAD: Atraumatic. Normocephalic. No temporal or scalp tenderness. EYES: Pupils equal round and reactive. Extraocular motions intact. No scleral icterus. No injection or drainage. ENT: Nose without bleeding, purulent drainage or septal hematoma. Throat without erythema, tonsillar hypertrophy or exudate. Uvula midline. Airway patent. NECK: Trachea midline. No JVD or lymphadenopathy. Supple, nontender, no meningeal signs. CARDIOVASCULAR: Regular rate and rhythm without murmurs, gallops, or rubs. RESPIRATORY: Clear to auscultation. Breath sounds equal bilaterally. No wheezes , rales, or rhonchi. GASTROINTESTINAL: Abdomen soft, non-tender, nondistended. No hepato-splenomegaly , or palpable masses. No guarding. MUSCULOSKELETAL: Extremities without clubbing, cyanosis, or edema. No joint tenderness, effusion, or edema noted. No calf tenderness. Negative Homans sign bilaterally. NEUROLOGICAL: Awake and alert. Cranial nerves II through XII intact. Motor and sensory grossly within normal limits. Five out of 5 muscle strength in all muscle groups. Normal speech. Laboratory Laboratory Tests Test 01/24/17 05:53 White Blood Count 4.8 Red Blood Count 4.35 Hemoglobin 13.4 Hematocrit 38.6 Mean Corpuscular Volume 88.7 Mean Corpuscular Hemoglobin 30.8 Mean Corpuscular Hemoglobin 34.7 Concent Red Cell Distribution Width 11.9 Platelet Count 100 Mean Platelet Volume 9.6 Neutrophils (%) (Auto) 79.3 Lymphocytes (%) (Auto) 15.2 Monocytes (%) (Auto) 4.7 Eosinophils (%) (Auto) 0.1 Basophils (%) (Auto) 0.7 Neutrophils # (Auto) 3.9 Lymphocytes # (Auto) 0.7 Monocytes # (Auto) 0.2 Eosinophils # (Auto) 0.0 Basophils # (Auto) 0.0 CBC Comment AUTO DIFF Differential Comment AUTO DIFF CONFIRMED Platelet Estimate LOW Platelet Morphology Comment NORMAL Red Cell Morphology Comment NORMAL Sodium Level 141 Potassium Level 3.4 Chloride Level 106 Carbon Dioxide Level 25.1 Anion Gap 10 Blood Urea Nitrogen 11 Creatinine 1.20 Estimat Glomerular Filtration 60 Rate Random Glucose 98 Calcium Level 7.7 Date/Time Procedure Status Source Growth 01/23/17 06:28 Aerobic Blood Culture - Preliminary Resulted Blood Peripheral NO GROWTH IN 1 DAY 01/23/17 06:28 Anaerobic Blood Culture - Preliminary Resulted Blood Peripheral NO GROWTH IN 1 DAY 01/23/17 06:22 Influenza Types A,B Antigen (SHERMAN) - Final Complete Nasal Aspirate NEGATIVE FOR FLU A AND B ANTIGEN.... (Doretha Kwon) Physical Exam Alert Oriented x 3 No thrush Chest clear Abdomen: soft Non tender Bowel sounds present (Jesenia Hector MD) Result Diagram: 01/24/1753 01/24/17552 Assessment and Plan Problem List: (1) Urinary retention Status: Acute (2) Fever Status: Acute Assessment and Plan CONTINUE ZOSYN/VANCO ? PROSTATITIS ? MAY NEED UROLOGY CONSULT MONTITOR CULTURES AND FU MRI ABD OUTPATIENT FOR POSSIBLE LIVER LESION SEEN EXAM WITH DR HECTOR (Doretha Kwon) Assessment and Plan May need CT Abdomen/ pelvis with contrast (Jesenia Hector MD) Problem Qualifiers (1) Sepsis: Qualified Code: A41.9 - Sepsis, due to unspecified organism (2) Fever: Doretha Kwon Jan 24, 2017 17:21 Jesenia Hector MD Jan 24, 2017 22:30
[2017-01-24] MEDS: VANCOMYCIN INJ 1,400 MG in SODIUM CHLORID 0.9% 500 ML INJ 500 ML IV SCH (17:35)
[2017-01-24 19:21] LABS: GLUCOSE,URINE NEG (NEG); KETONE, URINE NEG (NEG); NITRITE,URINE NEG (NEG)
[2017-01-24 19:22] LABS: BLOOD, URINE MOD (NEG)
[2017-01-24 19:30] LABS: URINE COLOR YELLOW (YELLW/STRAW)
[2017-01-24 19:31] LABS: COMMENT (UR) CULT NOT INDICATED; CULTURE IF INDICATED CULT NOT INDICATED; SQUAMOUS EPITHELIAL CELL URINE 0-5 /hpf (0-5)
[2017-01-24] MEDS: ZOLPIDEM TARTRATE 5 MG TAB PO SCH (20:46)
[2017-01-24] MEDS: TAMSULOSIN HCL 0.4 MG CAP PO SCH (20:46)
[2017-01-25] VITALS: BP 129/87; PULSE 90; RESP 20; TEMP 99.7; O2SAT 96
[2017-01-25 04:00] VITALS: BP 128/82; PULSE 93; RESP 20; TEMP 99.6; O2SAT 96
[2017-01-25] MEDS: PIPERACIL-TAZO 3.375 GM PREMIX 50 ML IV SCH ×2 (04:13→09:00)
[2017-01-25] MEDS: SODIUM CHLOR 0.9% 1000 ML INJ 1,000 ML IV SCH (04:14)
[2017-01-25 06:32] LABS: AUTOMATED NEUTROPHIL # 3.8 TH/MM3 (1.8-7.7); BASOPHIL % 0.9 % (0.0-2.0); EOSINOPHIL % 0.6 % (0.0-4.0); HEMATOCRIT 38.1 % (39.0-51.0); HEMO FLAGS DIFF FINAL; LYMPHOCYTE # 0.9 TH/MM3 (1.0-4.8); MEAN CELL VOLUME 88.2 FL (80.0-100.0); MEAN CORPUSCULAR HEMOGLOBIN 29.5 PG (27.0-34.0); MEAN CORPUSCULAR HGB CONC 33.4 % (32.0-36.0); MONO % 7.8 % (0.0-8.0); NEUT % 73.7 % (16.0-70.0); PLATELET COUNT 107 TH/MM3 (150-450); RED BLOOD COUNT 4.32 MIL/MM3 (4.50-5.90); RED CELL DISTRIBUTION WIDTH 11.9 % (11.6-17.2); WHITE BLOOD COUNT 5.1 TH/MM3 (4.0-11.0)
[2017-01-25 06:40] LABS: CHLORIDE 105 MEQ/L (98-107); POTASSIUM 3.4 MEQ/L (3.5-5.1); SODIUM (NA) 139 MEQ/L (136-145)
[2017-01-25 06:52] LABS: ALKALINE PHOSPHATASE 59 U/L (45-117); ALT (GPT) 70 U/L (12-78); ANION GAP 8 MEQ/L (5-15); AST (GOT) 66 U/L (15-37); BLOOD UREA NITROGEN 10 MG/DL (7-18); GLOMERULAR FILTRATION RATE 75 ML/MIN (>89); TOTAL BILIRUBIN ADULT 0.9 MG/DL (0.2-1.0)
--- NOTE | 2017-01-25 08:08 | HHI.PR ---
Subjective History of Present Illness Patient feel better no acute issue wants to go home d/w ID ok to DC Home today. Review of Systems Constitutional Constitutional: Fatigue, Weakness Vitals/Results Intake & Output 01/24/17 01/24/17 01/25/17 15:00 23:00 07:00 Intake Total 700 ml 240 ml 1970 ml Output Total 600 ml 400 ml 300 ml Balance 100 ml -160 ml 1670 ml Intake Oral 700 ml 240 ml 120 ml IV Total 1850 ml Output Urine Total 600 ml 400 ml 300 ml # Voids 4 # Bowel Movements 0 0 0 Vital Signs Vital Signs Date Time Temp Pulse Resp B/P Pulse Ox O2 Delivery O2 Flow Rate FiO2 01/25/17 04:00 99.6 93 20 128/82 96 01/25/17 00:00 99.7 90 20 129/87 96 01/24/17 21:00 73 01/24/17 20:00 97 21 01/24/17 20:00 99.5 74 20 120/78 97 01/24/17 16:00 99.6 79 20 122/75 97 01/24/17 12:00 101.2 88 20 98/59 95 01/24/17 11:41 93 21 CBC/BMP: 01/25/17 0600 01/25/17 0600 Lab Results Laboratory Tests Test 01/24/17 01/24/17 01/25/17 19:09 19:10 06:00 Tumor Marker Alpha Fetoprotein 1.1 NG/ML Urine Color YELLOW Urine Turbidity CLEAR Urine pH 6.0 Urine Specific [place] 1.004 Urine Protein NEG mg/dL Urine Glucose (UA) NEG mg/dL Urine Ketones NEG mg/dL Urine Occult Blood MOD Urine Nitrite NEG Urine Bilirubin NEG Urine Leukocyte Esterase NEG Urine Squamous Epithelial 0-5 /hpf Cells Microscopic Urinalysis Comment CULT NOT INDICATED White Blood Count 5.1 TH/MM3 Red Blood Count 4.32 MIL/MM3 Hemoglobin 12.7 GM/DL Hematocrit 38.1 % Mean Corpuscular Volume 88.2 FL Mean Corpuscular Hemoglobin 29.5 PG Mean Corpuscular Hemoglobin 33.4 % Concent Red Cell Distribution Width 11.9 % Platelet Count 107 TH/MM3 Mean Platelet Volume 9.5 FL Neutrophils (%) (Auto) 73.7 % Lymphocytes (%) (Auto) 17.0 % Monocytes (%) (Auto) 7.8 % Eosinophils (%) (Auto) 0.6 % Basophils (%) (Auto) 0.9 % Neutrophils # (Auto) 3.8 TH/MM3 Lymphocytes # (Auto) 0.9 TH/MM3 Monocytes # (Auto) 0.4 TH/MM3 Eosinophils # (Auto) 0.0 TH/MM3 Basophils # (Auto) 0.0 TH/MM3 CBC Comment DIFF FINAL Differential Comment Sodium Level 139 MEQ/L Potassium Level 3.4 MEQ/L Chloride Level 105 MEQ/L Carbon Dioxide Level 26.0 MEQ/L Anion Gap 8 MEQ/L Blood Urea Nitrogen 10 MG/DL Creatinine 1.00 MG/DL Estimat Glomerular Filtration 75 ML/MIN Rate Random Glucose 101 MG/DL Calcium Level 7.5 MG/DL Total Bilirubin 0.9 MG/DL Aspartate Amino Transf 66 U/L (AST/SGOT) Alanine Aminotransferase 70 U/L (ALT/SGPT) Alkaline Phosphatase 59 U/L Total Protein 5.7 GM/DL Albumin 2.4 GM/DL Physical Exam General General Appearance: Well Developed, Well Nourished, No Acute Distress, Comfortable Eyes Eye Exam: Pupils Equal, Pupils Reactive, Sclera White, Extraocular Movement Intact Throat Throat Exam: Oral Mucosa [place] & Moist, Oral Pharynx Normal Neck Neck Exam: Neck Supple, Trachea Midline Pulmonary Resp Exam: Clear Bilaterally, Breath Sounds Equal Cardiology CV Exam: Regular, Normal Sinus Rhythm Gastrointestinal/Abdomen GI Exam: Non-Tender, Bowel Sounds Present Musculoskeletal MS Exam: Normal Gait, Normal Tone Integumentary Skin Exam: Clear, Warm, Dry, Intact, Normal Turgor Extremeties Extremities Exam: No Edema Neurologic Neuro Exam: Alert, Awake, Oriented, Speech Clear, Moving All Extremities, No Focal Deficits VTE Prophylaxis VTE Prophylaxis Meds: Heparin PUD Prophylasis PUD Prophylaxis: Protonix Assessment/Plan Assessment/Plan ASSESSMENT/PLAN 1. This is a 66-year-old male who came to the ER diagnosed with fever. Etiology not known. The patient had a prostate biopsy. The patient is on vancomycin and Zosyn. infectious disease input noted wants to discharge the patient home on Cipro 500 mg PO BID and Doxycycline 100 mg PO BID for 10 days. 2. High PSA status post prostate biopsy. Had hematuria because of that. 3. History of hypertension. Continue home medication. We will monitor blood pressure. 4. High troponin. We will repeat troponin again. 5. Low platelet count. We will monitor. 6. DVT prophylaxis. SCDs. 7. GI prophylaxis. Protonix 40 milligrams p.o. daily. ok to dc home today. f/u with pcp/ Infectious disease 1 week. Discussed Condition with: Patient Bright Bundy MD Jan 25, 2017 08:08
[2017-01-25] MEDS: SODIUM CHLORIDE 0.9% FLUSH 5 ML FLUSH FLUSH SCH (08:59)
[2017-01-25] MEDS: LOSARTAN 50 MG TAB PO SCH (09:00)
[2017-01-25] MEDS ORDERED: POLYETHYLENE GLYCOL 17 GM PKG PO ONE (09:30)
[2017-01-25] MEDS: HEPARIN SODIUM - SQ 10,000 UNITS/ML VIAL SQ SCH (09:47)
[2017-01-25] MEDS ORDERED: PHARMACY ORDERED LAB XX ONE (10:45)
[2017-01-25] MEDS: VANCOMYCIN INJ 1,400 MG in SODIUM CHLORID 0.9% 500 ML INJ 500 ML IV SCH (11:02)
[2017-01-25] MEDS ORDERED: POTASSIUM CHLORIDE 10 MEQ CONTROLLED RELEASE TAB PO ONE (11:30)
[2017-01-25 11:44] VITALS: O2SAT 96
[2017-01-25] MEDS ORDERED: CIPR-9 PO (11:55)
[2017-01-25] MEDS ORDERED: DOXY100C PO (11:55)
[2017-01-25 12:28] VITALS: BP 138/80; PULSE 76; RESP 18; TEMP 99; O2SAT 97
[2017-01-26] MEDS ORDERED: POLYETHYLENE GLYCOL 17 GM PKG PO SCH (09:00)
--- NOTE | 2017-01-30 07:01 | MD ---
cc: BRIGHT BRITO MD ADMISSION DATE: 01/23/2017 DISCHARGE DATE: 01/25/2017 DISPOSITION Okay to discharge the patient. CONDITION AT THE TIME DISCHARGE Satisfactory. ACTIVITY As tolerated. DIET Cardiac diet. ALLERGY No known drug allergies. DISCHARGE MEDICATIONS 1. Cipro 500 mg twice a day. 2. Doxycycline 100 mg twice a day, both for 10 days. 3. Lortab 10/325 q.4 hours p.r.n. pain. 4. Losartan 100 mg p.o. daily. 5. Flomax 0.4 mg p.o. daily. FOLLOWUP The patient advised to follow up with PCP and Infectious Disease within a week. ADMISSION DIAGNOSIS/HOSPITAL COURSE Fever of unknown origin. The patient had a prostate biopsy done recently. After that he developed fever, questionable proctitis, need to see Urology as an outpatient. The patient needs MRI of the abdomen as an outpatient for possible liver lesion. The patient is aware of the liver lesion and he said he is following up strictly with a primary care doctor. The patient had CT chest done and shows some atelectasis right lower lobe with tiny bilateral pleural effusion. No significant infiltrates or mass identified in the lung. There is no mediastinal adenopathy. A number of hypodensities scattered throughout the liver including one adjacent to the falciform ligament which anteriorly displaces the liver capsule, slightly unusual for a benign lesion, although angioma is within the differential. Either hepatic MRI or contrast enhanced CT scan is recommended. Certainly could be done on an outpatient basis. The patient was advised to do that. The says he follows with a PCP and he verbalized understanding that he will follow this as an outpatient. The patient had anemia with hemoglobin 12.7. The patient had hypokalemia during the hospital stay which was replaced. Further details in the medical record. Bright Brito MD EA/KENYA /11:59 AM /6:49 AM
== END 2017-01-25 13:18 | disposition home or self-care (01) | DRG 864 ==
LOC: PHED 05:53 → PHEDA 10:33 → PH3A 11:28
PROVIDERS: ADMIT Family Medicine; ATTEND Family Medicine
DX: R50.9 Fever, unspecified (principal); I10 Essential (primary) hypertension; K76.9 Liver disease, unspecified; R97.20 Elevated prostate specific antigen [PSA]
CPT/HCPCS: 71020; 71250; 80048; 80053; 80074; 80202; 81001; 82105; 83605; 84484; 85025; 87040; 87804; 96361; 96365; 96367; 96375; J1644; J2405; J2543; J2550; J3370; J7030; J7040; J7050

== ENCOUNTER 2018-01-29 14:54 | Emergency (ER) | payer MEDICARE, OTHER ==
[~2018-01-29] VITALS: Ht 172.7 cm; Wt 76.1 kg
[~2018-01-29 14:54] MED LIST changes: +CIPR-9 PO; +DOXY100C PO; +HYDR-3535 PO
[2018-01-29 14:58] VITALS: BP 140/63; PULSE 78; RESP 16; TEMP 98.2; O2SAT 98
[2018-01-29] MEDS ORDERED: LIDOCAINE 1%/EPINEPHrine 1:100,000 SOLN 20 ML VIAL INFIL ONE (16:00)
--- NOTE | 2018-01-29 16:30 | PD ---
HPI Chief Complaint: Skin Problem Time Seen by Provider: 15:45 Travel History International Travel<30 days: No Contact w/Intl Traveler<30days: No Traveled to known affect area: No History of Present Illness HPI 67-year-old male here with a laceration to his right lateral thigh caused by a razor blade. Patient was re-gripping his cough clubs with a razor and accidentally cut his thigh. He denies paresthesia or weakness of the extremity. He applied a pressure dressing and came to the ER. Tetanus immunization is unknown. He has pain at the site of the laceration. No aggravating or alleviating factors. PFSH Past Medical History Hx Anticoagulant Therapy: Yes (NORMALLY 81 MG ASA) Heart Rhythm Problems: No Cardiovascular Problems: Yes (HTN) High Cholesterol: No Congestive Heart Failure: No Diminished Hearing: No Genitourinary: Yes Hypertension: Yes Musculoskeletal: No Neurologic: No Psychiatric: No Reproductive: No Respiratory: No Past Surgical History Other Surgery: Yes (finger; PROSTATE BIOPSY) Social History Alcohol Use: Yes (SOCIALLY) Tobacco Use: No Substance Use: No Allergies-Medications (Allergen,Severity, Reaction): Coded Allergies: No Known Allergies (Unverified Adverse Reaction, Unknown, 01/29/18) Reported Meds & Prescriptions Reported Meds & Active Scripts Active Flomax (Tamsulosin HCl) 0.4 Mg Cap 0.4 Mg PO HS Reported Losartan (Losartan Potassium) 100 Mg Tab 100 Mg PO DAILY Review of Systems Except as stated in HPI: all other systems reviewed are Neg General / Constitutional: No: Fever Eyes: No: Visual changes HENT: No: Headaches Cardiovascular: No: Chest Pain or Discomfort Respiratory: No: Shortness of Breath Gastrointestinal: No: Abdominal Pain Genitourinary: No: Dysuria Physical Exam Narrative GENERAL: Alert well-appearing 67-year-old male SKIN: Warm and dry. 5 cm laceration to right lateral thigh. No tendon or vascular injury. HEAD: Normocephalic. EYES:. No injection or drainage. NECK: Supple CARDIOVASCULAR: Regular rate and rhythm without murmurs, gallops, or rubs. RESPIRATORY: Breath sounds equal bilaterally. No accessory muscle use. GASTROINTESTINAL: Abdomen soft, non-tender, nondistended. MUSCULOSKELETAL: No cyanosis, or edema. See skin noted above. Normal strength and sensation. 2+ distal pulses. Brisk cap refill. Data Data Last Documented VS Vital Signs Date Time Temp Pulse Resp B/P (MAP) Pulse Ox O2 Delivery O2 Flow Rate FiO2 01/29/18 14:58 98.2 78 16 140/63 (88) 98 Orders Orders Lidocai-Epi 1%-1:100,000 Inj (Xylocaine- (01/29/18 16:00) Ed Discharge Order (01/29/18 16:30) MDM Medical Decision Making Medical Screen Exam Complete: Yes Emergency Medical Condition: Yes Differential Diagnosis Laceration, abrasion, vascular/tendon injury Narrative Course 67-year-old male here with a laceration to his right lateral thigh. The extremity is neurovascularly intact. No foreign body identified. Laceration repair performed. The patient tolerated procedure well. Discussed wound care Procedures Procedure Narrative LACERATION LOCATION: Right thigh anterior/lateral aspect LENGTH: 5 CM NUMBER OF STITCHES/STEF: 8 REPAIR: The area of the laceration was prepped with Betadine and sterilely draped. The laceration was infiltrated with 1% lidocaine with epi. The wound was copiously irrigated and explored without evidence of foreign body, tendon injury or neurovascular injury. The wound was closed using 3-0 Ethilon. This was a Single layer repair. A sterile dressing was applied. The patient was advised to keep the dressing clean and dry. Patient tolerated the procedure well. Diagnosis Primary Impression: Laceration of right thigh Qualified Codes: S71.111A - Laceration without foreign body, right thigh, initial encounter Referrals: Primary Care Physician Additional Instructions: Sutures need to be removed in 7-10 days. Cleansed the area daily with soap and water. Apply a thin layer of antibiotic ointment and cover with dressing. Disposition: 01 DISCHARGE HOME Condition: Stable Sahra Tellez Ford VAZQUEZ Jan 29, 2018 16:30
== END 2018-01-29 16:37 | disposition home or self-care (01) ==
LOC: PHEFT 14:54
DX: S71.111A Laceration without foreign body, right thigh, initial encounter (principal); W26.8XXA Contact with other sharp object(s), not elsewhere classified, initial encounter; Y93.89 Activity, other specified; I10 Essential (primary) hypertension; Z79.82 Long term (current) use of aspirin
CPT/HCPCS: 12002